=== PATIENT | female | born 1935 | race Two or more races ===

== ENCOUNTER 2019-08-08 10:06 | Inpatient (IN) | payer MEDICARE, MEDICAID ==
[~2019-08-08] VITALS: Ht 160 cm; Wt 66.0 kg
[~2019-08-08 10:06] MED LIST: DOCU50LI25 PO; HYDR-4001 MT; KEPP500 MT; LANTUSUD SUBCUT
[2019-08-08] MEDS ORDERED: SODIUM CHLORIDE 0.9% 500 ML IV ONE (10:15)
[2019-08-08] MEDS ORDERED: LEVOFLOXACIN 750MG PREMIX 150 ML IV ONE (11:00)
[2019-08-08] MEDS ORDERED: SODIUM CHLORIDE 0.9% 1000ML BAG (SEPSIS BOLUS) IV ONE (11:00)
[2019-08-08 11:03] LABS: BASOPHILS % 0.4 % (0.0-2.0); EOSINOPHILS % 0.3 % (0.0-5.0); HEMATOCRIT. 27.1 % (36.0-48.0); HEMOGLOBIN. 9.3 g/dL (12.0-16.0); LYMPHOCYTES % 8.4 % (20.0-50.0); MEAN CORPUSCULAR HEMOGLOBIN 31.9 pg (28.0-32.0); MEAN CORPUSCULAR VOLUME 93.2 fL (81.0-99.0); MEAN PLATELET VOLUME 7.7 fl (7.4-10.4); MONOCYTES % 5.2 % (2.0-8.0); NEUTROPHILS % 85.7 % (40.0-76.0); PLATELET 300 x1000/uL (130-400); RED BLOOD CELL COUNT 2.91 mill/uL (4.2-5.4); RED CELL DISTRIBUTION WIDTH 16.2 % (11.6-14.6)
[2019-08-08 11:10] LABS: CHLORIDE 96 mEq/L (98-107)
[2019-08-08 11:47] LABS: CLARITY URINE CLOUDY (CLEAR); COLOR URINE YELLOW (YELLOW); KETONES URINE NEGATIVE (NEGATIVE); LEUKOCYTE ESTERASE URINE 3+ (NEGATIVE); NITRITE URINE NEGATIVE (NEGATIVE); OCCULT BLOOD URINE TRACE (NEGATIVE); PH URINE >=9.0 (4.5-8.0); PROTEIN URINE 1+ (NEGATIVE); SPECIFIC GRAVITY URINE 1.007 (1.005-1.030)
[2019-08-08] MEDS ORDERED: IPRATROPIUM/ALBUTEROL 0.5-3(2.5)MG/3ML NEB HHN PRN (13:15)
[2019-08-08] MEDS ORDERED: ENOXAPARIN 40MG/0.4ML SYR SUBCUT SCH (13:30)
[2019-08-08] MEDS ORDERED: ONDANSETRON HCL 4MG/2ML INJ IV PRN (13:30)
[2019-08-08 13:51] LABS: BG BASE EXCESS 8.2 mmol/L (-2.0-2.0); BG CARBOXYHEMOGLOBIN 0.3 % (0.5-1.5); BG FRACTION INSPIRED OXYGEN 100; BG HCO3 ACT 31.2 mmol/L (22.0-26.0); BG METHEMOGLOBIN 0.1 % (0.0-1.5); BG OXYHEMOGLOBIN 98.6 % (94.0-97.0); BG PCO2 37.3 mmHg (35.0-45.0); BG PH 7.541 (7.350-7.450); BG PO2 192.2 mmHg (75.0-100.0); BG SAMPLE SITE RIGHT BRACHIAL; BG TIDAL VOLUME(mL) 450 mL; BG TOTAL HEMOGLOBIN 9.2 g/dL (12.0-18.0); BG VENT MODE VENT - A/C; BG VENT RATE 14 set
[2019-08-08 14:29] LABS: CREATINE KINASE MB FRACTION < 1.0 ng/mL (0.5-3.6)
[2019-08-08] MEDS ORDERED: SODIUM CHLORIDE 0.45% 1,000 ML IV SCH (14:30)
[2019-08-08] MEDS ORDERED: MEROPENEM 500 MG in SODIUM CHLORIDE 0.9% 50 ML IV NR (14:45)
[2019-08-08] MEDS ORDERED: ENOXAPARIN 30MG/0.3ML SYR SUBCUT SCH (15:00)
[2019-08-08] MEDS: IPRATROPIUM/ALBUTEROL 0.5-3(2.5)MG/3ML NEB HHN SCH (18:00)
[2019-08-08] MEDS ORDERED: DEXTROSE 50% WATER 50ML SYRINGE IV PRN (18:45)
[2019-08-08] MEDS ORDERED: SODIUM CHLORIDE 0.9% 250 ML IV ONE (19:15)
[2019-08-08] MEDS ORDERED: MEROPENEM 500 MG in SODIUM CHLORIDE 0.9% 50 ML IV SCH (20:00)
[2019-08-08] MEDS ORDERED: NOREPINEPHRINE 4 MG in DEXT 5% WATER 246 ML IV PRN (20:45)
[2019-08-08] MEDS: INSULIN LISPRO 100 UNITS/ML SUBCUT SCH (21:00)
[2019-08-08] MEDS: DEXT 5%/0.45% NACL 1000ML 1,000 ML IV SCH (21:07)
[2019-08-08 23:40] LABS: CREATINE KINASE MB FRACTION 1.8 ng/mL (0.5-3.6)
[2019-08-09] VITALS (26 sets, daily range): BP systolic 94–120; BP diastolic 37–84
[2019-08-09] MEDS: IPRATROPIUM/ALBUTEROL 0.5-3(2.5)MG/3ML NEB HHN SCH ×4 (02:17→20:23)
[2019-08-09 04:59] LABS: BASOPHILS % 0.3 % (0.0-2.0); EOSINOPHILS % 0.4 % (0.0-5.0); LYMPHOCYTES % 9.8 % (20.0-50.0); MEAN CORPUSCULAR HEMOGLOBIN 32.3 pg (28.0-32.0); MEAN CORPUSCULAR VOLUME 92.5 fL (81.0-99.0); MEAN PLATELET VOLUME 7.1 fl (7.4-10.4); MONOCYTES % 6.4 % (2.0-8.0); NEUTROPHILS % 83.1 % (40.0-76.0); PLATELET 254 x1000/uL (130-400); RED BLOOD CELL COUNT 2.48 mill/uL (4.2-5.4); RED CELL DISTRIBUTION WIDTH 16.2 % (11.6-14.6)
[2019-08-09 05:04] LABS: CHLORIDE 101 mEq/L (98-107)
[2019-08-09 05:12] LABS: LDL CHOLESTEROL 59 mg/dL (5-100)
[2019-08-09 05:14] LABS: HDL CHOLESTEROL 29 mg/dL (40-59)
[2019-08-09] MEDS ORDERED: NOREPINEPHRINE 4MG/250ML PMX 250 ML IV PRN (07:45)
[2019-08-09 08:01] LABS: TOTAL IRON BINDING CAPACITY 90 ug/dL (250-450)
[2019-08-09] MEDS ORDERED: NOREPINEPHRINE 4 MG in DEXT 5% WATER 246 ML IV PRN (09:15)
[2019-08-09] MEDS: ACETAMINOPHEN 325MG TABLET PO PRN (09:28)
[2019-08-09 10:30] LABS: BG CARBOXYHEMOGLOBIN 0.3 % (0.5-1.5); BG DEOXYHEMOGLOBIN 1.3 % (0.0-5.0); BG FRACTION INSPIRED OXYGEN 50; BG HCO3 ACT 22.9 mmol/L (22.0-26.0); BG METHEMOGLOBIN 0.2 % (0.0-1.5); BG OXYGEN SATURATION 98.7 % (92.0-98.5); BG OXYHEMOGLOBIN 98.2 % (94.0-97.0); BG PCO2 26.7 mmHg (35.0-45.0); BG PH 7.552 (7.350-7.450); BG PO2 152.5 mmHg (75.0-100.0); BG SAMPLE SITE RIGHT RADIAL; BG TIDAL VOLUME(mL) 450 mL; BG TOTAL HEMOGLOBIN 8.4 g/dL (12.0-18.0); BG VENT MODE VENT - A/C; BG VENT RATE 14 set
[2019-08-09] MEDS: MEROPENEM 500 MG in SODIUM CHLORIDE 0.9% 50 ML IV SCH ×2 (10:47→18:30)
[2019-08-09] MEDS: BLOOD SUGAR DIAGNOSTIC STRIP TEST SCH ×3 (12:34→20:47)
[2019-08-09] MEDS: ACETYLCYSTEINE 100MG/ML 10% VIAL 4ML INH SCH (12:35)
[2019-08-09] MEDS: INSULIN LISPRO 100 UNITS/ML SUBCUT SCH ×3 (13:04→20:52)
[2019-08-09] MEDS: DEXT 5%/0.45% NACL 1000ML 1,000 ML IV SCH (13:25)
[2019-08-09] MEDS ORDERED: DILTIAZEM HCL 5MG/ML 5ML VIAL IV PRN (13:45)
[2019-08-09] MEDS ORDERED: VANCOMYCIN 2,000 MG in DEXT 5% WATER 500 ML IV SCH (14:00)
[2019-08-09] MEDS: MORPHINE SULFATE 2 MG/ML CPJ (NOT FOR IM USE) IV PRN ×3 (14:59→22:27)
[2019-08-09] MEDS ORDERED: LIDOCAINE HCL/EPINEPHRINE 1%-EPI 1:100,000 20 ML VIAL INFIL NR (15:30)
[2019-08-09] MEDS: SODIUM HYPOCHLORITE 0.125% 473ML SOLUTION TOP SCH ×2 (15:32→16:11)
[2019-08-09] MEDS: DIGOXIN 250MCG TABLET PO SCH (17:35)
[2019-08-10] VITALS (38 sets, daily range): BP systolic 99–124; BP diastolic 33–64
[2019-08-10] MEDS: ACETYLCYSTEINE 100MG/ML 10% VIAL 4ML INH SCH ×3 (00:12→16:30)
[2019-08-10] MEDS: IPRATROPIUM/ALBUTEROL 0.5-3(2.5)MG/3ML NEB HHN SCH ×6 (00:19→20:16)
[2019-08-10] MEDS: MEROPENEM 500 MG in SODIUM CHLORIDE 0.9% 50 ML IV SCH ×3 (01:40→17:12)
[2019-08-10 05:45] LABS: BASOPHILS % 0.4 % (0.0-2.0); EOSINOPHILS % 1.5 % (0.0-5.0); HEMATOCRIT. 22.2 % (36.0-48.0); HEMOGLOBIN. 7.7 g/dL (12.0-16.0); LYMPHOCYTES % 9.8 % (20.0-50.0); MEAN CORPUSCULAR HEMOGLOBIN 32.1 pg (28.0-32.0); MEAN CORPUSCULAR VOLUME 92.9 fL (81.0-99.0); MEAN PLATELET VOLUME 7.5 fl (7.4-10.4); MONOCYTES % 7.6 % (2.0-8.0); NEUTROPHILS % 80.7 % (40.0-76.0); PLATELET 297 x1000/uL (130-400); RED BLOOD CELL COUNT 2.39 mill/uL (4.2-5.4); RED CELL DISTRIBUTION WIDTH 15.9 % (11.6-14.6)
[2019-08-10 05:46] LABS: CHLORIDE 102 mEq/L (98-107)
[2019-08-10] MEDS: BLOOD SUGAR DIAGNOSTIC STRIP TEST SCH ×4 (08:00→21:21)
[2019-08-10] MEDS: SODIUM HYPOCHLORITE 0.125% 473ML SOLUTION TOP SCH ×2 (08:08→17:08)
[2019-08-10] MEDS: VANCOMYCIN 1 G PREMIX 200 ML IV SCH (08:08)
[2019-08-10] MEDS: INSULIN LISPRO 100 UNITS/ML SUBCUT SCH ×4 (08:09→21:26)
[2019-08-10] MEDS: ACETAMINOPHEN 325MG TABLET PO PRN (08:09)
[2019-08-10] MEDS ORDERED: POTASSIUM CHLORIDE 20MEQ/PACKET PO SCH (08:30)
[2019-08-10 10:09] LABS: BG BASE EXCESS -2.8 mmol/L (-2.0-2.0); BG CARBOXYHEMOGLOBIN 0.4 % (0.5-1.5); BG DEOXYHEMOGLOBIN 5.6 % (0.0-5.0); BG HCO3 ACT 21.6 mmol/L (22.0-26.0); BG METHEMOGLOBIN 0.2 % (0.0-1.5); BG OXYGEN SATURATION 94.4 % (92.0-98.5); BG OXYHEMOGLOBIN 93.8 % (94.0-97.0); BG PCO2 35.2 mmHg (35.0-45.0); BG PH 7.405 (7.350-7.450); BG PO2 76.2 mmHg (75.0-100.0); BG SAMPLE SITE RIGHT RADIAL; BG TIDAL VOLUME(mL) 450 mL; BG TOTAL HEMOGLOBIN 6.9 g/dL (12.0-18.0); BG VENT MODE VENT - A/C; BG VENT RATE 14 set
[2019-08-10] MEDS: LEVETIRACETAM 500MG/5ML CUP PO SCH ×2 (10:28→21:25)
[2019-08-10] MEDS: LANSOPRAZOLE 30MG DR CAPSULE NG SCH (10:28)
[2019-08-10] MEDS ORDERED: LIDOCAINE HCL 1% 20ML VIAL (Pyxis) INJ ONE (11:08)
[2019-08-10] MEDS: MORPHINE SULFATE 2 MG/ML CPJ (NOT FOR IM USE) IV PRN ×2 (12:48→16:43)
[2019-08-10] MEDS: DIGOXIN 250MCG TABLET PO SCH (17:12)
[2019-08-11] VITALS (45 sets, daily range): BP systolic 89–121; BP diastolic 44–67
[2019-08-11] MEDS: ACETYLCYSTEINE 100MG/ML 10% VIAL 4ML INH SCH ×3 (00:03→16:43)
[2019-08-11] MEDS: IPRATROPIUM/ALBUTEROL 0.5-3(2.5)MG/3ML NEB HHN SCH ×6 (00:03→19:52)
[2019-08-11] MEDS: MEROPENEM 500 MG in SODIUM CHLORIDE 0.9% 50 ML IV SCH ×2 (01:16→11:29)
[2019-08-11] MEDS: MORPHINE SULFATE 2 MG/ML CPJ (NOT FOR IM USE) IV PRN (04:49)
[2019-08-11 05:59] LABS: CHLORIDE 102 mEq/L (98-107)
[2019-08-11 06:02] LABS: HEMATOCRIT. 23.9 % (36.0-48.0); HEMOGLOBIN. 8.1 g/dL (12.0-16.0); MEAN CORPUSCULAR VOLUME 94.3 fL (81.0-99.0); MEAN PLATELET VOLUME 7.5 fl (7.4-10.4); PLATELET 279 x1000/uL (130-400); RED BLOOD CELL COUNT 2.54 mill/uL (4.2-5.4); RED CELL DISTRIBUTION WIDTH 16.5 % (11.6-14.6)
[2019-08-11 08:25] LABS: BG BASE EXCESS -3.5 mmol/L (-2.0-2.0); BG CARBOXYHEMOGLOBIN 0.3 % (0.5-1.5); BG HCO3 ACT 20.2 mmol/L (22.0-26.0); BG METHEMOGLOBIN 0.3 % (0.0-1.5); BG OXYHEMOGLOBIN 98.4 % (94.0-97.0); BG PCO2 30.8 mmHg (35.0-45.0); BG PH 7.435 (7.350-7.450); BG PO2 171.8 mmHg (75.0-100.0); BG TOTAL HEMOGLOBIN 8.1 g/dL (12.0-18.0); BG VENT MODE VENT - A/C
[2019-08-11 08:30] LABS: BG VENT RATE 14 set
[2019-08-11] MEDS: BLOOD SUGAR DIAGNOSTIC STRIP TEST SCH ×4 (08:30→21:39)
[2019-08-11 08:31] LABS: BG SAMPLE SITE RIGHT RADIAL; BG TIDAL VOLUME(mL) 450 mL
[2019-08-11 08:52] LABS: PLATELET ESTIMATE NORMAL
[2019-08-11] MEDS: INSULIN LISPRO 100 UNITS/ML SUBCUT SCH ×4 (08:53→21:40)
[2019-08-11] MEDS: LANSOPRAZOLE 30MG DR CAPSULE NG SCH (08:53)
[2019-08-11] MEDS: LEVETIRACETAM 500MG/5ML CUP PO SCH ×2 (08:53→21:39)
[2019-08-11] MEDS: VANCOMYCIN 1 G PREMIX 200 ML IV SCH (08:53)
[2019-08-11] MEDS: SODIUM HYPOCHLORITE 0.125% 473ML SOLUTION TOP SCH ×2 (08:54→16:53)
[2019-08-11] MEDS: CEFEPIME 1,000 MG in DEXTROSE 5% WATER 50 ML IV SCH (16:52)
[2019-08-11] MEDS: DIGOXIN 250MCG TABLET PO SCH (17:34)
[2019-08-11] MEDS: METRONIDAZOLE 500MG TABLET PO SCH (21:39)
[2019-08-11] MEDS: INSULIN GLARGINE UD 100 UNITS/ML SYR SUBCUT SCH (21:40)
[2019-08-12] VITALS (37 sets, daily range): BP systolic 98–144; BP diastolic 49–91
[2019-08-12] MEDS: IPRATROPIUM/ALBUTEROL 0.5-3(2.5)MG/3ML NEB HHN SCH ×6 (00:43→19:46)
[2019-08-12] MEDS: ACETYLCYSTEINE 100MG/ML 10% VIAL 4ML INH SCH ×3 (00:43→17:22)
[2019-08-12] MEDS: CEFEPIME 1,000 MG in DEXTROSE 5% WATER 50 ML IV SCH ×2 (03:23→16:16)
[2019-08-12 05:48] LABS: HEMOGLOBIN. 8.2 g/dL (12.0-16.0); MEAN CORPUSCULAR HEMOGLOBIN 31.8 pg (28.0-32.0); MEAN CORPUSCULAR VOLUME 93.3 fL (81.0-99.0); PLATELET 317 x1000/uL (130-400); RED BLOOD CELL COUNT 2.57 mill/uL (4.2-5.4); RED CELL DISTRIBUTION WIDTH 16.5 % (11.6-14.6)
[2019-08-12 05:56] LABS: CHLORIDE 102 mEq/L (98-107)
[2019-08-12 06:20] LABS: DIGOXIN 1.3 ng/mL (0.9-2.0)
[2019-08-12] MEDS: BLOOD SUGAR DIAGNOSTIC STRIP TEST SCH ×4 (07:45→21:45)
[2019-08-12 07:50] LABS: PLATELET ESTIMATE NORMAL
[2019-08-12] MEDS: LEVETIRACETAM 500MG/5ML CUP PO SCH ×2 (08:32→21:46)
[2019-08-12] MEDS: INSULIN LISPRO 100 UNITS/ML SUBCUT SCH ×4 (08:33→21:48)
[2019-08-12] MEDS: LANSOPRAZOLE 30MG DR CAPSULE NG SCH (08:33)
[2019-08-12] MEDS: METRONIDAZOLE 500MG TABLET PO SCH ×2 (08:33→21:46)
[2019-08-12] MEDS: SODIUM HYPOCHLORITE 0.125% 473ML SOLUTION TOP SCH ×2 (08:34→16:15)
[2019-08-12 09:19] LABS: BG BASE EXCESS 2.9 mmol/L (-2.0-2.0); BG CARBOXYHEMOGLOBIN 0.1 % (0.5-1.5); BG FRACTION INSPIRED OXYGEN 40; BG HCO3 ACT 26.2 mmol/L (22.0-26.0); BG METHEMOGLOBIN 0.1 % (0.0-1.5); BG OXYHEMOGLOBIN 97.8 % (94.0-97.0); BG PCO2 35.2 mmHg (35.0-45.0); BG PH 7.489 (7.350-7.450); BG PO2 105.3 mmHg (75.0-100.0); BG PRESSURE SUPPORT 12; BG SAMPLE SITE RIGHT RADIAL; BG TIDAL VOLUME(mL) 450 mL; BG TOTAL HEMOGLOBIN 10.2 g/dL (12.0-18.0); BG VENT MODE VENT - SIMV; BG VENT RATE 10 set
[2019-08-12] MEDS: INSULIN GLARGINE UD 100 UNITS/ML SYR SUBCUT SCH ×2 (10:50→21:49)
[2019-08-12] MEDS: DILTIAZEM HCL 30MG TABLET PO SCH ×2 (13:02→21:46)
[2019-08-12] MEDS: MORPHINE SULFATE 2 MG/ML CPJ (NOT FOR IM USE) IV PRN (13:45)
[2019-08-12] MEDS: DIGOXIN 250MCG TABLET PO SCH (17:58)
[2019-08-13] VITALS (19 sets, daily range): BP systolic 89–122; BP diastolic 39–70
[2019-08-13] MEDS: IPRATROPIUM/ALBUTEROL 0.5-3(2.5)MG/3ML NEB HHN SCH ×5 (01:00→16:33)
[2019-08-13] MEDS: ACETYLCYSTEINE 100MG/ML 10% VIAL 4ML INH SCH ×3 (01:00→16:33)
[2019-08-13] MEDS: CEFEPIME 1,000 MG in DEXTROSE 5% WATER 50 ML IV SCH ×2 (03:24→16:25)
[2019-08-13 05:40] LABS: HEMATOCRIT. 24.1 % (36.0-48.0); HEMOGLOBIN. 8.3 g/dL (12.0-16.0); MEAN CORPUSCULAR VOLUME 93.3 fL (81.0-99.0); PLATELET 322 x1000/uL (130-400); RED BLOOD CELL COUNT 2.58 mill/uL (4.2-5.4); RED CELL DISTRIBUTION WIDTH 16.6 % (11.6-14.6)
[2019-08-13 05:47] LABS: CHLORIDE 102 mEq/L (98-107)
[2019-08-13] MEDS: DILTIAZEM HCL 30MG TABLET PO SCH ×2 (06:00→14:00)
[2019-08-13 07:08] LABS: PLATELET ESTIMATE NORMAL
[2019-08-13] MEDS: BLOOD SUGAR DIAGNOSTIC STRIP TEST SCH ×3 (07:48→17:28)
[2019-08-13] MEDS: LANSOPRAZOLE 30MG DR CAPSULE NG SCH (07:48)
[2019-08-13] MEDS: INSULIN LISPRO 100 UNITS/ML SUBCUT SCH ×2 (08:02→12:22)
[2019-08-13] MEDS: METRONIDAZOLE 500MG TABLET PO SCH (08:57)
[2019-08-13] MEDS: LEVETIRACETAM 500MG/5ML CUP PO SCH (08:57)
[2019-08-13] MEDS: SODIUM HYPOCHLORITE 0.125% 473ML SOLUTION TOP SCH ×2 (08:57→17:28)
[2019-08-13] MEDS: INSULIN GLARGINE UD 100 UNITS/ML SYR SUBCUT SCH (08:58)
[2019-08-13] MEDS ORDERED: LIDOCAINE HCL/EPINEPHRINE 1%-EPI 1:100,000 20 ML VIAL INFIL NR (09:15)
== END 2019-08-13 18:05 | disposition short-term general hospital (02) | DRG 710 ==
LOC: ER 10:06 → CVICU 10:52 → EDBEDREQ 11:09 → EDBEDREQTM 11:09 → EDBEDREQSVC 13:43 → EDBEDREQ 13:43 → EDBEDREQTM 20:58 → EDBEDREQSVC 20:58 → ENRESERV 08-09 07:30 → CVICU 08-09 08:38
PROVIDERS: ADMIT Internal Medicine Nephrology; ATTEND Nurse Practitioner Family
PROC: 5A1955Z Respiratory Ventilation, Greater than 96 Consecutive Hours (ICD-10-PCS; principal; 2019-08-08)
PROC: 0KBN0ZZ Excision of Right Hip Muscle, Open Approach (ICD-10-PCS; 2019-08-09)
PROC: 0KBP0ZZ Excision of Left Hip Muscle, Open Approach (ICD-10-PCS; 2019-08-09)
PROC: 02HV33Z Insertion of Infusion Device into Superior Vena Cava, Percutaneous Approach (ICD-10-PCS; 2019-08-10)
PROC: B548ZZA Ultrasonography of Superior Vena Cava, Guidance (ICD-10-PCS; 2019-08-10)
PROC: 0QB10ZZ Excision of Sacrum, Open Approach (ICD-10-PCS; 2019-08-13)
DX: A41.59 Other Gram-negative sepsis (principal); J96.20 Acute and chronic respiratory failure, unspecified whether with hypoxia or hypercapnia; R65.21 Severe sepsis with septic shock; J69.0 Pneumonitis due to inhalation of food and vomit; E43 Unspecified severe protein-calorie malnutrition; G93.40 Encephalopathy, unspecified; L89.129 Pressure ulcer of left upper back, unspecified stage; I48.0 Paroxysmal atrial fibrillation; L89.893 Pressure ulcer of other site, stage 3; L89.154 Pressure ulcer of sacral region, stage 4; I47.1 Supraventricular tachycardia; E11.65 Type 2 diabetes mellitus with hyperglycemia; D64.9 Anemia, unspecified; N39.0 Urinary tract infection, site not specified; E03.9 Hypothyroidism, unspecified; G40.909 Epilepsy, unspecified, not intractable, without status epilepticus; B96.4 Proteus (mirabilis) (morganii) as the cause of diseases classified elsewhere; C71.9 Malignant neoplasm of brain, unspecified; I11.0 Hypertensive heart disease with heart failure; L81.6 Other disorders of diminished melanin formation; R13.10 Dysphagia, unspecified; Z66 Do not resuscitate; L89.890 Pressure ulcer of other site, unstageable; L89.322 Pressure ulcer of left buttock, stage 2; Z85.841 Personal history of malignant neoplasm of brain; Z99.11 Dependence on respirator [ventilator] status; Z93.1 Gastrostomy status; Z68.25 Body mass index [BMI] 25.0-25.9, adult; Z93.0 Tracheostomy status; Z79.899 Other long term (current) drug therapy
CPT/HCPCS: 36415; 36600; 71045; 76937; 80048; 80053; 80061; 80162; 81003; 82270; 82375; 82553; 82805; 82962; 83036; 83540; 83550; 83605; 83880; 84134; 84443; 84484; 85025; 87070; 87075; 87077; 87186; 87804; 93005; 93970; 94002; 94003; 94640; 99291; C1725; C1769; J0692; J1815; J1956; J2185; J2270; J3370; J3490; J7040; J7060; J7608

== ENCOUNTER 2019-10-04 13:02 | Inpatient (IN) | payer MEDICARE, MEDICAID ==
[~2019-10-04] VITALS: Ht 162.6 cm; Wt 58.5 kg
[2019-10-04] VITALS (8 sets, daily range): BP systolic 94–120; BP diastolic 47–81
[2019-10-04 14:36] LABS: CHLORIDE 104 mEq/L (98-107)
[2019-10-04 14:40] LABS: HEMATOCRIT. 23.9 % (36.0-48.0); MEAN CORPUSCULAR HEMOGLOBIN 31.2 pg (28.0-32.0); MEAN CORPUSCULAR VOLUME 93.3 fL (81.0-99.0); MEAN PLATELET VOLUME 7.5 fl (7.4-10.4); PLATELET 565 x1000/uL (130-400); RED BLOOD CELL COUNT 2.56 mill/uL (4.2-5.4); RED CELL DISTRIBUTION WIDTH 17.3 % (11.6-14.6)
[2019-10-04 14:50] LABS: INR 0.9; PARTIAL THROMBOPLASTIN TIME 21.7 sec (23.4-31.0); PROTHROMBIN TIME 10.2 sec (9.6-11.0)
[2019-10-04 14:58] LABS: PLATELET ESTIMATE INCREASED
[2019-10-04] MEDS ORDERED: MORPHINE SULFATE 2 MG/ML CPJ (NOT FOR IM USE) IV PRN (15:00)
[2019-10-04] MEDS ORDERED: ACETAMINOPHEN 650MG/20.3ML UDC GT PRN (15:00)
[2019-10-04] MEDS ORDERED: CLONIDINE 0.1MG TABLET PO PRN (15:00)
[2019-10-04] MEDS ORDERED: ONDANSETRON HCL 4MG/2ML INJ IV PRN (15:00)
[2019-10-04 15:44] LABS: BG BASE EXCESS 0.7 mmol/L (-2.0-2.0); BG CARBOXYHEMOGLOBIN 0.3 % (0.5-1.5); BG DEOXYHEMOGLOBIN 1.4 % (0.0-5.0); BG FRACTION INSPIRED OXYGEN 40; BG HCO3 ACT 23.2 mmol/L (22.0-26.0); BG METHEMOGLOBIN 0.1 % (0.0-1.5); BG OXYGEN SATURATION 98.6 % (92.0-98.5); BG OXYHEMOGLOBIN 98.2 % (94.0-97.0); BG PCO2 29.2 mmHg (35.0-45.0); BG PH 7.518 (7.350-7.450); BG PO2 157.6 mmHg (75.0-100.0); BG SAMPLE SITE RIGHT BRACHIAL; BG TIDAL VOLUME(mL) 500 mL; BG TOTAL HEMOGLOBIN 8.9 g/dL (12.0-18.0); BG VENT MODE VENT - A/C; BG VENT RATE 12 set
[2019-10-04] MEDS ORDERED: CEFEPIME 1,000 MG in DEXTROSE 5% WATER 50 ML IV SCH (16:00)
[2019-10-04] MEDS ORDERED: SODIUM CHLORIDE 0.9% 1,000 ML IV ONE (18:15)
[2019-10-04] MEDS ORDERED: NOREPINEPHRINE 32 MG in DEXT 5% WATER 468 ML IV PRN (23:45)
[2019-10-05] VITALS (59 sets, daily range): BP systolic 91–150; BP diastolic 48–122
[2019-10-05] MEDS: LEVETIRACETAM 500MG/5ML CUP PO SCH ×3 (01:08→23:10)
[2019-10-05] MEDS ORDERED: DEXTROSE 50% WATER 50ML SYRINGE IV PRN (04:30)
[2019-10-05] MEDS ORDERED: LIDOCAINE HCL 1% 20ML VIAL (Pyxis) INJ ONE (06:44)
[2019-10-05 07:15] LABS: MEAN CORPUSCULAR HEMOGLOBIN 30.7 pg (28.0-32.0); MEAN CORPUSCULAR VOLUME 93.2 fL (81.0-99.0); PLATELET 550 x1000/uL (130-400); RED BLOOD CELL COUNT 2.18 mill/uL (4.2-5.4); RED CELL DISTRIBUTION WIDTH 17.2 % (11.6-14.6)
[2019-10-05 07:20] LABS: HEMATOCRIT. 20.3 % (36.0-48.0); HEMOGLOBIN. 6.7 g/dL (12.0-16.0)
[2019-10-05 07:27] LABS: CHLORIDE 109 mEq/L (98-107)
[2019-10-05 07:41] LABS: LDL CHOLESTEROL 62 mg/dL (5-100)
[2019-10-05 07:43] LABS: HDL CHOLESTEROL 41 mg/dL (40-59)
[2019-10-05] MEDS: INSULIN LISPRO 100 UNITS/ML SUBCUT SCH ×4 (08:20→21:00)
[2019-10-05] MEDS: BLOOD SUGAR DIAGNOSTIC STRIP TEST SCH ×4 (08:27→21:00)
[2019-10-05] MEDS: IPRATROPIUM/ALBUTEROL 0.5-3(2.5)MG/3ML NEB HHN PRN ×2 (08:30→14:30)
[2019-10-05 09:14] LABS: BG BASE EXCESS -7.9 mmol/L (-2.0-2.0); BG CARBOXYHEMOGLOBIN 0.3 % (0.5-1.5); BG DEOXYHEMOGLOBIN 2.1 % (0.0-5.0); BG FRACTION INSPIRED OXYGEN 35; BG HCO3 ACT 15.9 mmol/L (22.0-26.0); BG METHEMOGLOBIN 0.7 % (0.0-1.5); BG OXYGEN SATURATION 97.9 % (92.0-98.5); BG OXYHEMOGLOBIN 96.9 % (94.0-97.0); BG PH 7.405 (7.350-7.450); BG PO2 129.2 mmHg (75.0-100.0); BG SAMPLE SITE RIGHT RADIAL; BG TIDAL VOLUME(mL) 500 mL; BG TOTAL HEMOGLOBIN 7.1 g/dL (12.0-18.0); BG VENT MODE VENT - A/C; BG VENT RATE 10 set
[2019-10-05 10:27] LABS: CLARITY URINE CLEAR (CLEAR); COLOR URINE YELLOW (YELLOW); KETONES URINE 1+ (NEGATIVE); LEUKOCYTE ESTERASE URINE 3+ (NEGATIVE); NITRITE URINE NEGATIVE (NEGATIVE); OCCULT BLOOD URINE NEGATIVE (NEGATIVE); PROTEIN URINE TRACE (NEGATIVE); SPECIFIC GRAVITY URINE 1.015 (1.005-1.030); UROBILINOGEN URINE 0.2 E.U./dL (0.2-1.0)
[2019-10-05 10:41] LABS: PLATELET ESTIMATE INCREASED
[2019-10-05 11:10] LABS: HEMATOCRIT 20.9 % (36.0-48.0); HEMOGLOBIN 6.9 g/dL (12.0-16.0)
[2019-10-05 12:49] LABS: TOTAL IRON BINDING CAPACITY 87 ug/dL (250-450)
[2019-10-05] MEDS ORDERED: CEFEPIME 1,000 MG in DEXTROSE 5% WATER 50 ML IV SCH (17:00)
[2019-10-05] MEDS: CEFEPIME 1,000 MG in DEXTROSE 5% WATER 50 ML IV SCH (21:11)
[2019-10-05] MEDS ORDERED: INSULIN GLARGINE UD 100 UNITS/ML SYR SUBCUT SCH (22:00)
[2019-10-06] VITALS (36 sets, daily range): BP systolic 101–158; BP diastolic 52–92
[2019-10-06 05:51] LABS: CHLORIDE 111 mEq/L (98-107)
[2019-10-06 05:54] LABS: HEMATOCRIT. 23.8 % (36.0-48.0); HEMOGLOBIN. 8.3 g/dL (12.0-16.0); MEAN CORPUSCULAR HEMOGLOBIN 31.7 pg (28.0-32.0); MEAN CORPUSCULAR VOLUME 90.5 fL (81.0-99.0); MEAN PLATELET VOLUME 6.8 fl (7.4-10.4); PLATELET 545 x1000/uL (130-400); RED BLOOD CELL COUNT 2.63 mill/uL (4.2-5.4); RED CELL DISTRIBUTION WIDTH 17.7 % (11.6-14.6)
[2019-10-06] MEDS ORDERED: POTASSIUM CHLORIDE 20MEQ/PACKET PO NR (07:30)
[2019-10-06] MEDS: INSULIN LISPRO 100 UNITS/ML SUBCUT SCH ×4 (07:51→23:06)
[2019-10-06] MEDS: BLOOD SUGAR DIAGNOSTIC STRIP TEST SCH ×4 (07:51→21:43)
[2019-10-06] MEDS: IPRATROPIUM/ALBUTEROL 0.5-3(2.5)MG/3ML NEB HHN PRN ×2 (08:30→12:35)
[2019-10-06] MEDS: LEVETIRACETAM 500MG/5ML CUP PO SCH ×2 (08:32→21:42)
[2019-10-06] MEDS: ZINC SULFATE 220 MG ( 50 ) CAPSULE PEG SCH (08:32)
[2019-10-06] MEDS: ASCORBIC ACID 500 MG TABLET PEG SCH (08:32)
[2019-10-06 11:50] LABS: PLATELET ESTIMATE INCREASED
[2019-10-06] MEDS: CEFEPIME 1,000 MG in DEXTROSE 5% WATER 50 ML IV SCH (20:03)
[2019-10-06] MEDS: INSULIN GLARGINE UD 100 UNITS/ML SYR SUBCUT SCH (23:53)
[2019-10-07] VITALS (30 sets, daily range): BP systolic 87–124; BP diastolic 48–78
[2019-10-07 05:55] LABS: HEMATOCRIT. 26.8 % (36.0-48.0); MEAN CORPUSCULAR VOLUME 92.9 fL (81.0-99.0); MEAN PLATELET VOLUME 8.1 fl (7.4-10.4); PLATELET 530 x1000/uL (130-400); RED BLOOD CELL COUNT 2.89 mill/uL (4.2-5.4); RED CELL DISTRIBUTION WIDTH 17.7 % (11.6-14.6)
[2019-10-07 06:09] LABS: CHLORIDE 111 mEq/L (98-107)
[2019-10-07 06:49] LABS: PLATELET ESTIMATE INCREASED
[2019-10-07] MEDS: BLOOD SUGAR DIAGNOSTIC STRIP TEST SCH ×3 (07:51→17:41)
[2019-10-07] MEDS: ZINC SULFATE 220 MG ( 50 ) CAPSULE PEG SCH (09:00)
[2019-10-07] MEDS: LEVETIRACETAM 500MG/5ML CUP PO SCH ×2 (09:47→21:00)
[2019-10-07] MEDS: ASCORBIC ACID 500 MG TABLET PEG SCH (09:47)
[2019-10-07] MEDS: INSULIN LISPRO 100 UNITS/ML SUBCUT SCH ×2 (12:00→17:41)
[2019-10-07] MEDS: CEPHALEXIN 250MG CAPSULE PO SCH ×3 (13:16→21:00)
[2019-10-07] MEDS: INSULIN GLARGINE UD 100 UNITS/ML SYR SUBCUT SCH (21:24)
[2019-10-08] VITALS: BP 87/45
[2019-10-08] MEDS: INSULIN LISPRO 100 UNITS/ML SUBCUT SCH
[2019-10-08 00:30] VITALS: BP 97/53
[2019-10-08] MEDS: BLOOD SUGAR DIAGNOSTIC STRIP TEST SCH (00:39)
[2019-10-08 01:00] VITALS: BP 95/48
== END 2019-10-08 01:20 | DRG 720 ==
LOC: ER 13:02 → EDBEDREQSVC 19:35 → EDBEDREQTM 20:00 → EDBEDREQ 20:00 → ENRESERV 20:14 → CVICU 22:35
PROVIDERS: ADMIT Internal Medicine Nephrology; ATTEND Internal Medicine Nephrology
PROC: 5A1945Z Respiratory Ventilation, 24-96 Consecutive Hours (ICD-10-PCS; 2019-10-04)
PROC: 05H533Z Insertion of Infusion Device into Right Subclavian Vein, Percutaneous Approach (ICD-10-PCS; principal; 2019-10-05)
PROC: B546ZZA Ultrasonography of Right Subclavian Vein, Guidance (ICD-10-PCS; 2019-10-05)
PROC: 30233N1 Transfusion of Nonautologous Red Blood Cells into Peripheral Vein, Percutaneous Approach (ICD-10-PCS; 2019-10-05)
DX: A41.59 Other Gram-negative sepsis (principal); E43 Unspecified severe protein-calorie malnutrition; I13.2 Hypertensive heart and chronic kidney disease with heart failure and with stage 5 chronic kidney disease, or end stage renal disease; L89.159 Pressure ulcer of sacral region, unspecified stage; Z99.11 Dependence on respirator [ventilator] status; G93.49 Other encephalopathy; J96.10 Chronic respiratory failure, unspecified whether with hypoxia or hypercapnia; C79.31 Secondary malignant neoplasm of brain; I27.81 Cor pulmonale (chronic); Z93.0 Tracheostomy status; I48.0 Paroxysmal atrial fibrillation; D64.9 Anemia, unspecified; N39.0 Urinary tract infection, site not specified; E03.9 Hypothyroidism, unspecified; G40.909 Epilepsy, unspecified, not intractable, without status epilepticus; R00.0 Tachycardia, unspecified; R13.10 Dysphagia, unspecified; I42.9 Cardiomyopathy, unspecified; K21.9 Gastro-esophageal reflux disease without esophagitis; E11.9 Type 2 diabetes mellitus without complications; B96.1 Klebsiella pneumoniae [K. pneumoniae] as the cause of diseases classified elsewhere; B96.29 Other Escherichia coli [E. coli] as the cause of diseases classified elsewhere; F32.9 Major depressive disorder, single episode, unspecified; I50.9 Heart failure, unspecified; Z79.899 Other long term (current) drug therapy; Z85.841 Personal history of malignant neoplasm of brain; Z99.2 Dependence on renal dialysis; Z87.440 Personal history of urinary (tract) infections; Z93.1 Gastrostomy status; Z87.01 Personal history of pneumonia (recurrent); Z68.22 Body mass index [BMI] 22.0-22.9, adult; Z92.21 Personal history of antineoplastic chemotherapy
CPT/HCPCS: 36415; 36600; 71045; 76937; 80048; 80053; 80061; 81003; 82270; 82375; 82805; 82962; 83036; 83540; 83550; 83880; 84484; 85014; 85018; 85025; 86850; 86900; 86920; 87070; 87077; 87186; 93005; 93306; 93970; 96365; 99285; C1725; J0692; J1815; J2270; J3490; J7030; J7060; P9016

== ENCOUNTER 2019-10-25 10:01 | Inpatient (IN) | payer MEDICARE, MEDICAID ==
[~2019-10-25] VITALS: Ht 317.5 cm; Wt 71.2 kg
[2019-10-25] MEDS ORDERED: SODIUM CHLORIDE 0.9% 500 ML IV ONE (10:30)
[2019-10-25] MEDS ORDERED: VANCOMYCIN 1 G PREMIX 200 ML IV SCH (10:30)
[2019-10-25] MEDS ORDERED: PIPERACILLIN/TAZ 3.375G PREMIX 50 ML IV ONE (10:30)
[2019-10-25] MEDS ORDERED: MAGNESIUM 2 G PREMIX 50 ML IV ONE (11:00)
[2019-10-25 11:21] LABS: CLARITY URINE CLEAR (CLEAR); COLOR URINE YELLOW (YELLOW); KETONES URINE NEGATIVE (NEGATIVE); LEUKOCYTE ESTERASE URINE 2+ (NEGATIVE); NITRITE URINE NEGATIVE (NEGATIVE); OCCULT BLOOD URINE NEGATIVE (NEGATIVE); PH URINE 8.5 (4.5-8.0); PROTEIN URINE NEGATIVE (NEGATIVE); SPECIFIC GRAVITY URINE 1.006 (1.005-1.030); UROBILINOGEN URINE 0.2 E.U./dL (0.2-1.0)
[2019-10-25 11:24] LABS: CHLORIDE 109 mEq/L (98-107)
[2019-10-25 11:26] LABS: BG BASE EXCESS 8.1 mmol/L (-2.0-2.0); BG CARBOXYHEMOGLOBIN 0.2 % (0.5-1.5); BG DEOXYHEMOGLOBIN 0.9 % (0.0-5.0); BG FRACTION INSPIRED OXYGEN 100; BG HCO3 ACT 29.5 mmol/L (22.0-26.0); BG OXYGEN SATURATION 99.1 % (92.0-98.5); BG OXYHEMOGLOBIN 98.9 % (94.0-97.0); BG PCO2 29.4 mmHg (35.0-45.0); BG PH 7.619 (7.350-7.450); BG PO2 325.1 mmHg (75.0-100.0); BG SAMPLE SITE RIGHT RADIAL; BG TIDAL VOLUME(mL) 500 mL; BG TOTAL HEMOGLOBIN 9.8 g/dL (12.0-18.0); BG VENT MODE VENT - A/C; BG VENT RATE 10 set
[2019-10-25 12:20] LABS: HEMATOCRIT. 24.1 % (36.0-48.0); HEMOGLOBIN. 8.3 g/dL (12.0-16.0); MEAN CORPUSCULAR HEMOGLOBIN 31.8 pg (28.0-32.0); MEAN CORPUSCULAR VOLUME 91.9 fL (81.0-99.0); MEAN PLATELET VOLUME 6.7 fl (7.4-10.4); PLATELET 394 x1000/uL (130-400); RED BLOOD CELL COUNT 2.62 mill/uL (4.2-5.4); RED CELL DISTRIBUTION WIDTH 18.4 % (11.6-14.6)
[2019-10-25 12:28] LABS: PROTHROMBIN TIME 11.2 sec (9.6-11.0)
[2019-10-25 12:42] LABS: PLATELET ESTIMATE NORMAL
[2019-10-25] MEDS ORDERED: NOREPINEPHRINE 4MG/250ML PMX 250 ML IV ONE ×2 (13:15→19:15)
[2019-10-25] MEDS ORDERED: DEXTROSE 5% WATER 1,000 ML IV SCH ×2 (13:54→15:30)
[2019-10-25] MEDS ORDERED: NOREPINEPHRINE 4 MG in DEXT 5% WATER 246 ML IV PRN (14:00)
[2019-10-25] MEDS ORDERED: ONDANSETRON HCL 4MG/2ML INJ IV PRN (14:00)
[2019-10-25] MEDS ORDERED: CLONIDINE 0.1MG TABLET PO PRN (14:00)
[2019-10-25] MEDS ORDERED: ACETAMINOPHEN 650MG/20.3ML UDC GT PRN (14:00)
[2019-10-25] MEDS ORDERED: MORPHINE SULFATE 2 MG/ML CPJ (NOT FOR IM USE) IV PRN (14:00)
[2019-10-25] MEDS ORDERED: MEROPENEM 500 MG in SODIUM CHLORIDE 0.9% 50 ML IV SCH (15:00)
[2019-10-25] MEDS ORDERED: DEXTROSE 50% WATER 50ML SYRINGE IV PRN (15:30)
[2019-10-25] MEDS: BLOOD SUGAR DIAGNOSTIC STRIP TEST SCH ×2 (16:57→21:00)
[2019-10-25] MEDS: INSULIN LISPRO 100 UNITS/ML SUBCUT SCH (17:00)
[2019-10-25] MEDS: MEROPENEM 500 MG in SODIUM CHLORIDE 0.9% 50 ML IV SCH (22:00)
[2019-10-26] MEDS ORDERED: NOREPINEPHRINE 4MG/250ML PMX 250 ML IV ONE (02:30)
[2019-10-26 03:55] LABS: BASOPHILS % 0.3 % (0.0-2.0); EOSINOPHILS % 2.8 % (0.0-5.0); HEMATOCRIT. 26.1 % (36.0-48.0); HEMOGLOBIN. 8.9 g/dL (12.0-16.0); LYMPHOCYTES % 10.4 % (20.0-50.0); MEAN CORPUSCULAR HEMOGLOBIN 31.9 pg (28.0-32.0); MEAN CORPUSCULAR VOLUME 93.6 fL (81.0-99.0); MEAN PLATELET VOLUME 7.2 fl (7.4-10.4); NEUTROPHILS % 82.5 % (40.0-76.0); PLATELET 438 x1000/uL (130-400); RED BLOOD CELL COUNT 2.79 mill/uL (4.2-5.4); RED CELL DISTRIBUTION WIDTH 17.7 % (11.6-14.6)
[2019-10-26 03:56] LABS: CHLORIDE 108 mEq/L (98-107)
[2019-10-26 04:05] LABS: LDL CHOLESTEROL 25 mg/dL (5-100)
[2019-10-26 04:06] LABS: HDL CHOLESTEROL 58 mg/dL (40-59)
[2019-10-26] MEDS: INSULIN LISPRO 100 UNITS/ML SUBCUT SCH ×4 (04:34→18:29)
[2019-10-26] MEDS: BLOOD SUGAR DIAGNOSTIC STRIP TEST SCH ×2 (04:35→13:08)
[2019-10-26] MEDS: MEROPENEM 500 MG in SODIUM CHLORIDE 0.9% 50 ML IV SCH ×2 (06:27→15:31)
[2019-10-26] MEDS: VASOPRESSIN 10 UNIT in SODIUM CHLORIDE 0.9% 100 ML IV PRN (07:37)
[2019-10-26 08:36] LABS: BG BASE EXCESS -3.1 mmol/L (-2.0-2.0); BG CARBOXYHEMOGLOBIN 0.2 % (0.5-1.5); BG DEOXYHEMOGLOBIN 1.1 % (0.0-5.0); BG FRACTION INSPIRED OXYGEN 100; BG HCO3 ACT 21.1 mmol/L (22.0-26.0); BG METHEMOGLOBIN 0.2 % (0.0-1.5); BG OXYGEN SATURATION 98.9 % (92.0-98.5); BG OXYHEMOGLOBIN 98.5 % (94.0-97.0); BG PO2 206.6 mmHg (75.0-100.0); BG SAMPLE SITE RIGHT RADIAL; BG TIDAL VOLUME(mL) 500 mL; BG TOTAL HEMOGLOBIN 9.1 g/dL (12.0-18.0); BG VENT MODE VENT - A/C; BG VENT RATE 10 set
[2019-10-26 08:43] LABS: BASOPHILS % 0.4 % (0.0-2.0); EOSINOPHILS % 3.9 % (0.0-5.0); HEMATOCRIT. 25.7 % (36.0-48.0); HEMOGLOBIN. 8.8 g/dL (12.0-16.0); LYMPHOCYTES % 9.1 % (20.0-50.0); MEAN CORPUSCULAR HEMOGLOBIN 32.2 pg (28.0-32.0); MEAN CORPUSCULAR VOLUME 93.9 fL (81.0-99.0); MEAN PLATELET VOLUME 7.3 fl (7.4-10.4); MONOCYTES % 2.5 % (2.0-8.0); NEUTROPHILS % 84.1 % (40.0-76.0); PLATELET 389 x1000/uL (130-400); RED BLOOD CELL COUNT 2.74 mill/uL (4.2-5.4); RED CELL DISTRIBUTION WIDTH 18.2 % (11.6-14.6)
[2019-10-26 08:47] LABS: CHLORIDE 108 mEq/L (98-107)
[2019-10-26] MEDS ORDERED: PANTOPRAZOLE SODIUM 40 MG/VIAL IV SCH (09:00)
[2019-10-26] MEDS: KCL 20MEQ/100ML PREMIX 100 ML IV SCH ×3 (09:09→23:43)
[2019-10-26] MEDS ORDERED: SODIUM CHLORIDE 0.9% 500 ML IV ONE (11:30)
[2019-10-26] MEDS ORDERED: INSULIN GLARGINE UD 100 UNITS/ML SYR SUBCUT SCH (13:00)
[2019-10-26] MEDS ORDERED: VANCOMYCIN 1 G PREMIX 200 ML IV SCH (14:00)
[2019-10-26] MEDS: SODIUM CHLORIDE 0.45% 1,000 ML IV SCH (14:22)
[2019-10-26] MEDS: METRONIDAZOLE 500 MG PREMIX 100 ML IV SCH (14:36)
[2019-10-26 17:42] LABS: CHLORIDE 104 mEq/L (98-107)
[2019-10-26] MEDS ORDERED: NOREPINEPHRINE 4MG/250ML PMX 250 ML IV PRN (19:45)
[2019-10-26] MEDS ORDERED: POTASSIUM CHLORIDE 10MEQ TABLET SR PO NR (20:15)
[2019-10-26] MEDS ORDERED: PHENYLEPHRINE 10MG in DEXT 5% WATER 250ML IV PRN (21:00)
[2019-10-26] MEDS ORDERED: SODIUM CHLORIDE 0.9% 1,000 ML IV NR (22:45)
[2019-10-26] MEDS ORDERED: PHENYLEPHRINE 80 MG in DEXT 5% WATER 492 ML IV PRN (23:04)
[2019-10-26 23:10] VITALS: BP 73/50
[2019-10-26 23:28] VITALS: BP 66/47
[2019-10-26 23:30] VITALS: BP 66/29
[2019-10-26] MEDS ORDERED: NOREPINEPHRINE 32 MG in DEXT 5% WATER 468 ML IV PRN (23:35)
[2019-10-26 23:46] VITALS: BP 91/40
[2019-10-27] VITALS (16 sets, daily range): BP systolic 42–85; BP diastolic 22–62
[2019-10-27] MEDS: METRONIDAZOLE 500 MG PREMIX 100 ML IV SCH (00:10)
[2019-10-27] MEDS: VASOPRESSIN 10 UNIT in SODIUM CHLORIDE 0.9% 100 ML IV PRN ×2 (00:23→03:30)
[2019-10-27] MEDS ORDERED: DOPAMINE HCL IV PRN (00:30)
[2019-10-27] MEDS ORDERED: DEXT 5% IV PRN (00:30)
[2019-10-27] MEDS ORDERED: WATER IV PRN (00:30)
[2019-10-27] MEDS: KCL 20MEQ/100ML PREMIX 100 ML IV SCH (01:18)
[2019-10-27] MEDS ORDERED: MEROPENEM 500 MG in SODIUM CHLORIDE 0.9% 50 ML IV SCH (02:00)
[2019-10-27] MEDS: SODIUM CHLORIDE 0.45% 1,000 ML IV SCH (02:21)
[2019-10-27] MEDS ORDERED: INSULIN GLARGINE UD 100 UNITS/ML SYR SUBCUT SCH (03:00)
[2019-10-27 05:45] LABS: BASOPHILS % 0.6 % (0.0-2.0); EOSINOPHILS % 4.7 % (0.0-5.0); HEMATOCRIT. 21.6 % (36.0-48.0); HEMOGLOBIN. 7.3 g/dL (12.0-16.0); LYMPHOCYTES % 41.1 % (20.0-50.0); MONOCYTES % 6.2 % (2.0-8.0); NEUTROPHILS % 47.4 % (40.0-76.0); RED BLOOD CELL COUNT 2.29 mill/uL (4.2-5.4); RED CELL DISTRIBUTION WIDTH 17.9 % (11.6-14.6)
[2019-10-27 05:55] LABS: CHLORIDE 104 mEq/L (98-107)
[2019-10-27 07:16] LABS: MEAN PLATELET VOLUME 7.9 fl (7.4-10.4); PLATELET 190 x1000/uL (130-400)
[2019-10-27] MEDS ORDERED: VANCOMYCIN 750 MG PREMIX 150 ML IV SCH (08:00)
== END 2019-10-27 05:43 | disposition expired | DRG 720 ==
LOC: ER 10:01 → EDBEDREQSVC 13:22 → MICUSO 13:38 → EDBEDREQTM 13:45 → EDBEDREQ 13:45 → MICUNO 10-26 23:10
PROVIDERS: ADMIT Internal Medicine Nephrology; ATTEND Internal Medicine Nephrology
PROC: 5A1945Z Respiratory Ventilation, 24-96 Consecutive Hours (ICD-10-PCS; 2019-10-25)
PROC: 05HY33Z Insertion of Infusion Device into Upper Vein, Percutaneous Approach (ICD-10-PCS; 2019-10-25)
PROC: 5A12012 Performance of Cardiac Output, Single, Manual (ICD-10-PCS; principal; 2019-10-27)
DX: A41.50 Gram-negative sepsis, unspecified (principal); J96.21 Acute and chronic respiratory failure with hypoxia; I46.9 Cardiac arrest, cause unspecified; E43 Unspecified severe protein-calorie malnutrition; I62.9 Nontraumatic intracranial hemorrhage, unspecified; G92 Toxic encephalopathy; J18.9 Pneumonia, unspecified organism; R65.21 Severe sepsis with septic shock; Z99.11 Dependence on respirator [ventilator] status; L89.159 Pressure ulcer of sacral region, unspecified stage; Z93.0 Tracheostomy status; I27.20 Pulmonary hypertension, unspecified; D68.59 Other primary thrombophilia; E11.65 Type 2 diabetes mellitus with hyperglycemia; E87.0 Hyperosmolality and hypernatremia; E87.2 Acidosis; I50.9 Heart failure, unspecified; D64.9 Anemia, unspecified; B96.89 Other specified bacterial agents as the cause of diseases classified elsewhere; E03.9 Hypothyroidism, unspecified; E87.6 Hypokalemia; G40.909 Epilepsy, unspecified, not intractable, without status epilepticus; I11.0 Hypertensive heart disease with heart failure; K21.9 Gastro-esophageal reflux disease without esophagitis; I27.81 Cor pulmonale (chronic); I48.0 Paroxysmal atrial fibrillation; N39.0 Urinary tract infection, site not specified; R13.10 Dysphagia, unspecified; Z03.818 Encounter for observation for suspected exposure to other biological agents ruled out; Z74.01 Bed confinement status; Z79.4 Long term (current) use of insulin; Z82.49 Family history of ischemic heart disease and other diseases of the circulatory system; Z85.841 Personal history of malignant neoplasm of brain; Z86.73 Personal history of transient ischemic attack (TIA), and cerebral infarction without residual deficits; Z93.1 Gastrostomy status; Z68.1 Body mass index [BMI] 19.9 or less, adult; Z79.899 Other long term (current) drug therapy
CPT/HCPCS: 36415; 36600; 71045; 80048; 80053; 80061; 80076; 81003; 82140; 82375; 82805; 82962; 83036; 83605; 84145; 84439; 84443; 84484; 85025; 87077; 87186; 93005; 94002; 99291; C9113; J1815; J2185; J2370; J2543; J3370; J3475; J3480; J3490; J7040; J7050; J7060; J7070; U0003-CS